=== PATIENT | male | born 1970 | race Caucasian/White ===

== ENCOUNTER 2023-08-30 08:26 | Outpatient (CLI) | payer BC ==
[2023-08-30] MEDS ORDERED: Barium Sulfate 96% 176 GM BOT (xray ONLY) ONE (09:13)
[2023-08-30] MEDS ORDERED: E-Z-HD 98% W/W 340GM BOT (x-ray ONLY) ONE (09:13)
== END 2023-08-30 08:27 | disposition home or self-care (01) ==
LOC: RAD 08:26
PROVIDERS: ATTEND Specialist
DX: R13.10 Dysphagia, unspecified (principal)
CPT/HCPCS: 74220